=== PATIENT | female | born 1960 | race Caucasian/White ===

== ENCOUNTER 2018-03-11 12:05 | Observation (INO) | payer OTHER ==
--- OUTSIDE RECORDS SUMMARY | 2018-03-11 12:07 | XMS REPORT | Clinical Summary ---
:1960 Author Organization [facility] Address [address] [place] [id number] Care Team Providers Name Role Phone Jenna Bai MD Primary Care Provider Allergies Active Allergy Reactions Severity Noted Date Comments Cyclobenzaprine 04/14/2016 Acts crazy with all relaxers. No Known Drug Allergies 09/21/2015 Current Medications Prescription Sig. Disp. Refills Start Date End Date Status traZODone Take 2 tablets 180 tablet 3 09/26/2016 Active (DESYREL) 150 MG (300 mg total) tabletIndications: by mouth Primary insomnia nightly. PROAIR HFA 90 05/08/2017 Active mcg/actuation inhaler DULoxetine TAKE ONE 180 capsule 3 10/22/2017 Active (CYMBALTA) 60 MG CAPSULE BY capsuleIndications MOUTH TWICE A : Fibromyalgia DAY DULoxetine Take 1 capsule 180 capsule 3 09/26/2016 Discontinued (CYMBALTA) 60 MG (60 mg total) 8 capsuleIndications by mouth 2 : Fibromyalgia (two) times a day. oseltamivir Take 1 capsule 10 capsule 0 05/11/2017 (TAMIFLU) 75 MG (75 mg total) 7 capsuleIndications by mouth 2 : Exposure to the (two) times a flu day for 5 days. benzonatate Take 1 capsule 50 capsule 1 05/11/2017 (TESSALON) 200 MG (200 mg total) 8 capsuleIndications by mouth 3 : Bronchitis (three) times a day as needed for cough for up to 30 days. codeine-guaifenesi Take 10 mL by 236 mL 0 05/11/2017 n (GUAIFENESIN AC) mouth 3 7 10-100 mg/5 mL (three) times liquidIndications: a day as Bronchitis needed for cough for up to 10 days. amoxicillin-pot Take 1 tablet 20 tablet 0 05/11/2017 clavulanate by mouth 2 7 (AUGMENTIN) (two) times a 875-125 mg per day for 10 tabletIndications: days. Bronchitis levoFLOXacin Take 1 tablet 10 tablet 0 05/11/2017 (LEVAQUIN) 500 MG (500 mg total) 7 tabletIndications: by mouth daily Bronchitis for 10 days. If not improved by Monday. Active Problems Problem Noted Date Gastroesophageal reflux disease with esophagitis 05/26/2016 Elevated blood pressure (not hypertension) 12/04/2015 Panic 09/21/2015 Perimenopausal disorder 09/21/2015 Primary fibromyalgia syndrome 09/21/2015 Panic attack Fibromyalgia Heart palpitations Encounters Date Type Specialty Care Team Description 10/22/2017 Refill Internal Medicine Jenna Bai Fibromyalgia MD Cristian 05/11/2017 Office Visit Internal Medicine Jenna Bai Cough (Primary Dx); MD Cristian Acute nasopharyngitis; Bronchitis; Exposure to the flu after 03/10/2017 Immunizations Name Dates Previously Given Next Due Influenza, Unspecified 04/05/2015 Tdap 03/05/2015 Zoster 04/14/2016 Family History Medical History Relation Name Comments Alzheimer's disease Father Alzheimer's disease Maternal Aunt Alzheimer's disease Maternal Grandmother Heart disease Maternal Grandmother Arthritis Mother Depression Mother Alzheimer's disease Paternal Aunt Alzheimer's disease Paternal Grandfather Alzheimer's disease Paternal Uncle Relation Name Status Comments Father Maternal Aunt Maternal Grandmother Mother Paternal Aunt Paternal Grandfather Paternal Uncle Social History Tobacco Use Types Packs/Day Years Used Date Never Smoker Tobacco Cessation: Counseling Given: No Alcohol Use Drinks/Week oz/Week Comments Yes Sex Assigned at Date Recorded Not on file Last Filed Vital Signs Vital Sign Reading Time Taken Blood Pressure 129/85 05/11/2017 12:30 PM [employer]IEF MECH[employer]ICAL OFFICER Pulse 95 05/11/2017 12:30 PM [employer]IEF MECH[employer] OFFICER Temperature 36.8 C (98.3 F) 05/11/2017 12:30 PM CHIEF MECH[employer]ICAL OFFICER Respiratory Rate 20 05/11/2017 12:30 PM CHIEF MECH[employer]ICAL OFFICER Oxygen Saturation 98% 05/11/2017 12:30 PM CHIEF MECH[employer]ICAL OFFICER Inhaled Oxygen Concentration - - Weight 117 kg (257 lb 9.6 oz) 05/11/2017 12:30 PM CHIEF MECH[employer]ICAL OFFICER Height - - Body Mass Index 38.04 05/11/2017 12:30 PM [employer]IEF MECH[employer]ICAL OFFICER Plan of Treatment Health Maintenance Due Date Last Done Comments CERVICAL CANCER SCREENING 1981 BREAST CANCER SCREENING 2010 COLON CANCER SCREENING 2010 SHINGRIX VACCINE (#1) 2010 INFLUENZA VACCINE 01/03/2018 04/05/2015 Procedures Procedure Name Priority Date/Time Associated Diagnosis Comments POCT INFLUENZA A/B Routine 05/11/2017 12:43 PM Cough Results for this [employer]IEF MECH[employer]ICAL OFFICER Acute procedure are in nasopharyngitis the results Exposure to the flu section. after 03/10/2017 Results POC Influenza A/B (05/11/2017 12:43 PM) Rapid Influenza A Ag - Rapid Influenza B Ag - Specimen Body fluid after 03/10/2017 Insurance Payer Benefit Plan / Group Subscriber ID Type Phone Address [facility] OPEN ACCESS/NETWORK xxxxxxxxxxx O [phone] [id number]
--- NOTE | 2018-03-11 12:57 | RAD REPORT ---
EXAM DESCRIPTION: RAD - Chest Single View - 03/11/2018 12:43 pm CLINICAL HISTORY: CHEST PAIN Chest pain. COMPARISON: CHEST SINGLE VIEW dated 05/08/2011 FINDINGS: Portable technique limits examination quality. The lungs are grossly clear. The heart is normal in size. No displaced fractures. IMPRESSION: No acute intrathoracic process suspected.
[2018-03-11 13:04] LABS: Absolute Monocytes 0.5 K/uL (0.1-1.3); Absolute Neutrophil 3.7 K/uL (1.8-8.0); Basophils % 1.2 % (0-1.3); Eosinophils % 1.7 % (0-4.4); Hematocrit 40.6 % (36.0-45.0); Lymphocytes % 60.4 % (15.3-44.8); MCH 32.5 pg (27.0-35.0); MCV 94.8 fL (80-100); MPV 7.7 fL (7.6-11.3); Monocytes % 4.5 % (3.3-12.3); RBC Red Blood Cell Count 4.28 M/uL (3.86-4.86)
[2018-03-11 13:20] LABS: ALT/SGPT 28 U/L (12-78); AST/SGOT 19 U/L (15-37); Albumin 3.4 g/dL (3.4-5.0); Alkaline Phosphatase 77 U/L (45-117); BUN Blood Urea Nitrogen 13 mg/dL (7-18); Bicarbonate 28 mmol/L (21-32); Bilirubin Direct < 0.1 mg/dL (0-0.2); Bilirubin Total 0.3 mg/dL (0.2-1.0); Glucose Level 107 mg/dL (74-106); Magnesium 2.3 mg/dL (1.8-2.4); NT PRO-BNP 6 pg/mL (<125); Potassium 3.7 mmol/L (3.5-5.1); Protein, Total 7.3 g/dL (6.4-8.2); Sodium Level 142 mmol/L (136-145); Troponin (Emerg Dept Use Only) < 0.02 ng/mL (0.0-0.045)
[2018-03-11 13:55] LABS: Protime INR 1.02
--- NOTE | 2018-03-11 14:15 | EDPHYS ---
Physician Documentation [facility] Name: Mandie Bobby Age: 57 yrs Sex: Female : 1960 Arrival Date: 03/11/2018 Time: 12:06 Bed 5 Private MD: ED Physician Santos Rogers HPI: 03/11 13:25 This 57 yrs old Female presents to ER via Ambulatory with complaints of Chest pm1 Tightness. 13:25 The patient or guardian reports chest pain that is located primarily in the mid-sternal pm1 area. Onset: 2 day(s) ago. Associated signs and symptoms: Pertinent positives: cough, Pertinent negatives: abdominal pain, dizziness, headache, nausea, shortness of breath, vomiting. The chest pain is described as a heaviness, sharp. Duration: The patient or guardian reports multiple episodes, that have now resolved. Modifying factors: The symptoms are alleviated by rest, the symptoms are aggravated by emotionally stressful situations, exertion, palpation of area. Severity of pain: in the emergency department the pain has improved. The patient has not experienced similar symptoms in the past. The patient has not recently seen a physician. Historical: - Allergies: 12:10 No Known Allergies; la1 - PMHx: 12:10 Depression; Fibromyalgia; la1 - Immunization history:: Adult Immunizations up to date. - Social history:: Smoking status: Patient/guardian denies using tobacco. - Ebola Screening: : No symptoms or risks identified at this time. ROS: 13:25 Constitutional: Negative for fever, chills, and weight loss, Eyes: Negative for injury, pm1 pain, redness, and discharge, ENT: Negative for injury, pain, and discharge, Neck: Negative for injury, pain, and swelling. 13:25 Respiratory: Negative for shortness of breath, cough, wheezing, and pleuritic chest pain, Abdomen/GI: Negative for abdominal pain, nausea, vomiting, diarrhea, and constipation, Back: Negative for injury and pain, : Negative for injury, bleeding, discharge, and swelling, MS/Extremity: Negative for injury and deformity, Skin: Negative for injury, rash, and discoloration. 13:25 Neuro: Negative for headache, weakness, numbness, tingling, and seizure. 13:25 Cardiovascular: Positive for chest pain, Negative for edema, orthopnea, palpitations. 13:25 Neuro: Exam: 13:25 Constitutional: This is a well developed, well nourished patient who is awake, alert, pm1 and in no acute distress. Head/Face: Normocephalic, atraumatic. Eyes: Pupils equal round and reactive to light, extra-ocular motions intact. Lids and lashes normal. Conjunctiva and sclera are non-icteric and not injected. Cornea within normal limits. Periorbital areas with no swelling, redness, or edema. ENT: Nares patent. No nasal discharge, no septal abnormalities noted. Tympanic membranes are normal and external auditory canals are clear. Oropharynx with no redness, swelling, or masses, exudates, or evidence of obstruction, uvula midline. Mucous membranes moist. Neck: Trachea midline, no thyromegaly or masses palpated, and no cervical lymphadenopathy. Supple, full range of motion without nuchal rigidity, or vertebral point tenderness. No Meningismus. 13:25 Cardiovascular: Regular rate and rhythm with a normal S1 and S2. No gallops, murmurs, or rubs. Normal PMI, no JVD. No pulse deficits. Respiratory: Lungs have equal breath sounds bilaterally, clear to auscultation and percussion. No rales, rhonchi or wheezes noted. No increased work of breathing, no retractions or nasal flaring. Abdomen/GI: Soft, non-tender, with normal bowel sounds. No distension or tympany. No guarding or rebound. No evidence of tenderness throughout. Back: No spinal tenderness. No costovertebral tenderness. Full range of motion. Skin: Warm, dry with normal turgor. Normal color with no rashes, no lesions, and no evidence of cellulitis. MS/ Extremity: Pulses equal, no cyanosis. Neurovascular intact. Full, normal range of motion. 13:25 Chest/axilla: Inspection: normal, Palpation: crepitus, is not appreciated, tenderness, of the mid-sternal area, that totally reproduces the patient's complaints. 13:25 Neuro: Orientation: is normal, Motor: is normal, moves all fours, Sensation: is normal, no obvious gross deficits, Gait: is steady, at a normal pace, without difficulty. Vital Signs: 12:10 BP 130 / 91; Pulse 93; Resp 18; Temp 97.4; Pulse Ox 98% on R/A; Weight 113.4 kg; Height la1 5 ft. 9 in. (175.26 cm); 12:30 BP 117 / 85; Pulse 94 MON; Resp 20; Pulse Ox 97% on R/A; sv 13:19 BP 122 / 79; Pulse 84; Resp 15; Pulse Ox 97% on R/A; sv 14:25 BP 138 / 81; Pulse 82; Resp 21; Pulse Ox 97% on R/A; sv 12:10 Body Mass Index 36.92 (113.40 kg, 175.26 cm) la1 12:30 Sinus Rhythm sv MDM: 12:18 Patient medically screened. pm1 13:31 Data reviewed: vital signs. pm1 13:54 Counseling: I had a detailed discussion with the patient and/or guardian regarding: the pm1 historical points, exam findings, and any diagnostic results supporting the discharge/admit diagnosis, lab results, radiology results, the need for further work-up and treatment in the hospital. 14:29 The patient was given aspirin in the Emergency Department. pm1 14:29 Physician consultation: Edgar Henson DO was contacted at 14:25, regarding admission, pm1 patient's condition, and will see patient in the emergency department to see patient at 14:25. 03/11 12:21 Order name: Basic Metabolic Panel; Complete Time: 13:35 pm1 03/11 12:21 Order name: CBC with Diff; Complete Time: 13:35 pm1 03/11 12:21 Order name: LFT's; Complete Time: 13:35 pm1 03/11 12:21 Order name: Magnesium; Complete Time: 13:35 pm1 03/11 12:21 Order name: NT PRO-BNP; Complete Time: 13:35 pm1 03/11 12:21 Order name: PT-INR; Complete Time: 14:13 pm1 03/11 12:21 Order name: Troponin (emerg Dept Use Only); Complete Time: 13:35 pm1 03/11 12:21 Order name: XRAY Chest (1 view); Complete Time: 13:05 pm1 03/11 12:21 Order name: EKG; Complete Time: 12:22 pm1 03/11 12:21 Order name: Cardiac monitoring; Complete Time: 12:30 pm1 03/11 12:21 Order name: EKG - Nurse/Tech; Complete Time: 12:30 pm1 03/11 12:21 Order name: IV Saline Lock; Complete Time: 12:30 pm1 03/11 14:41 Order name: Diet Heart Healthy; Complete Time: 14:41 sv 03/11 12:21 Order name: Labs collected and sent; Complete Time: 12:30 pm1 03/11 12:21 Order name: O2 Per Protocol; Complete Time: 12:30 pm1 03/11 12:21 Order name: O2 Sat Monitoring; Complete Time: 12:30 pm1 03/11 12:44 Order name: Labs - recollect needed; Complete Time: 13:09 eb Administered Medications: 14:24 Drug: Aspirin 325 mg Route: PO; sv 15:00 Follow up: Response: No adverse reaction sv Disposition: 18:39 Co-signature as Attending Physician, Santos Rogers MD Available for consultation at [facility] all times. . Disposition: 03/11/18 14:14 Hospitalization ordered by Edgar Henson for Observation. Preliminary diagnosis is Chest pain, unspecified. - Bed requested for Telemetry/MedSurg (observation). - Status is Observation. hb - Condition is Stable. - Problem is new. - Symptoms have improved. UTI on Admission? No Signatures: Dispatcher [employer] EDAlyssa Roberts RN ROBYN Soto Davey RN RN la1 Barron Posada, MELLY INDUSTRIAL TECHNOLOGY TEACHER pm1 Flori Mccormack, ROBYN RN Santos Rogers MD MD ps1 Natalie Pabon Corrections: (The following items were deleted from the chart) 14:02 13:25 Modifying factors: the symptoms are aggravated by emotionally stressful pm1 situations, palpation of area, pm1 14:20 14:14 Hospitalization Ordered by Sander Quezada MD for Observation. Preliminary pm1 diagnosis is Chest pain, unspecified. Bed requested for Telemetry/MedSurg (observation). Status is Observation. Condition is Stable. Problem is new. Symptoms have improved. UTI on Admission? No. pm1 15:09 14:20 03/11/2018 14:14 Hospitalization Ordered by Edgar Henson DO for Observation. eb Preliminary diagnosis is Chest pain, unspecified. Bed requested for Telemetry/MedSurg (observation). Status is Observation. Condition is Stable. Problem is new. Symptoms have improved. UTI on Admission? No. pm1 15:55 15:09 03/11/2018 14:14 Hospitalization Ordered by Edgar Henson DO for Observation. hb Preliminary diagnosis is Chest pain, unspecified. Bed requested for Telemetry/MedSurg (observation). Status is Observation. Condition is Stable. Problem is new. Symptoms have improved. UTI on Admission? No. eb
--- NOTE | 2018-03-11 14:15 | ER ---
Nurse's Notes [facility] Name: Mandie Bobby Age: 57 yrs Sex: Female : 1960 Arrival Date: 03/11/2018 Time: 12:06 Bed 5 Private MD: Diagnosis: Chest pain, unspecified Presentation: 03/11 12:09 Presenting complaint: Patient states: Heavy sensation in my chest for the last 3 days la1 that sometimes moves to my left arm. Transition of care: patient was not received from another setting of care. Onset of symptoms was March 11, 2018. Risk Assessment: Do you want to hurt yourself or someone else? Patient reports no desire to harm self or others. Initial Sepsis Screen: Does the patient meet any 2 criteria? No. Patient's initial sepsis screen is negative. Does the patient have a suspected source of infection? No. Patient's initial sepsis screen is negative. Care prior to arrival: None. 12:09 Method Of Arrival: Ambulatory la1 12:09 Acuity: EFREN 3 la1 Historical: - Allergies: 12:10 No Known Allergies; la1 - PMHx: 12:10 Depression; Fibromyalgia; la1 - Immunization history:: Adult Immunizations up to date. - Social history:: Smoking status: Patient/guardian denies using tobacco. - Ebola Screening: : No symptoms or risks identified at this time. Screenin:20 Abuse screen: Denies threats or abuse. Denies injuries from another. Nutritional sv screening: No deficits noted. Tuberculosis screening: No symptoms or risk factors identified. Fall Risk None identified. Assessment: 12:10 General: Appears in no apparent distress. comfortable, well developed, Behavior is sv calm, cooperative, appropriate for age. Pain: Complains of pain in mid-sternal area Pain radiates to left arm Quality of pain is described as heavy, pressure, Pain began 2-3 days ago. Is intermittent, Alleviated by nothing. Neuro: Level of Consciousness is awake, alert, obeys commands, Oriented to person, place, time, situation, Moves all extremities. Full function Gait is steady, Speech is normal. Cardiovascular: Patient's skin is warm and dry. Rhythm is sinus rhythm. Respiratory: Respiratory effort is even, unlabored, Respiratory pattern is regular, symmetrical. GI: No signs and/or symptoms were reported involving the gastrointestinal system. : No signs and/or symptoms were reported regarding the genitourinary system. EENT: No signs and/or symptoms were reported regarding the EENT system. Derm: Skin is normal. Musculoskeletal: No signs and/or symptoms reported regarding the musculoskeletal system. 14:15 Reassessment: Patient appears in no apparent distress at this time. No changes from sv previously documented assessment. Patient and/or family updated on plan of care and expected duration. Pain level reassessed. Patient is alert, oriented x 3, equal unlabored respirations, skin warm/dry/pink. 14:24 Reassessment: Dr Henson at the bedside. sv 15:30 Reassessment: Patient appears in no apparent distress at this time. No changes from sv previously documented assessment. Patient and/or family updated on plan of care and expected duration. Pain level reassessed. Patient is alert, oriented x 3, equal unlabored respirations, skin warm/dry/pink. Vital Signs: 12:10 BP 130 / 91; Pulse 93; Resp 18; Temp 97.4; Pulse Ox 98% on R/A; Weight 113.4 kg; Height la1 5 ft. 9 in. (175.26 cm); 12:30 BP 117 / 85; Pulse 94 MON; Resp 20; Pulse Ox 97% on R/A; sv 13:19 BP 122 / 79; Pulse 84; Resp 15; Pulse Ox 97% on R/A; sv 14:25 BP 138 / 81; Pulse 82; Resp 21; Pulse Ox 97% on R/A; sv 12:10 Body Mass Index 36.92 (113.40 kg, 175.26 cm) la1 12:30 Sinus Rhythm sv ED Course: 12:06 Patient arrived in ED. as 12:10 Triage completed. la1 12:10 Arm band placed on left wrist. la1 12:14 Barron Posada NP is PHCP. pm1 12:14 Santos Rogers MD is Attending Physician. pm1 12:18 EKG done, by ED staff, reviewed by Barron Posada NP. sv 12:20 Patient has correct armband on for positive identification. Placed in gown. Bed in low sv position. Call light in reach. Adult w/ patient. electronic device monitor on. Pulse ox on. NIBP on. Door closed. Head of bed elevated. 12:20 Initial lab(s) drawn, by wy, sent to lab. Inserted saline lock: 20 gauge in right sv antecubital area, using aseptic technique. Blood collected. Flushed right antecubital with 5 ml normal saline. 12:29 Alyssa Zepeda RN is Primary Nurse. sv 12:31 Nurse Practitioner and/or Physician Paste Mixer to see patient. sv 12:40 X-ray completed. Portable x-ray completed in exam room. Patient tolerated procedure tm4 well. 12:40 XRAY Chest (1 view) In Process Unspecified. EDMS 13:00 Lab(s) recollected, by ED staff, sent to lab. sv 13:13 Awaiting lab results. sv 14:14 Sander Quezada MD is Hospitalizing Provider. pm1 14:20 Edgar Henson DO is Hospitalizing Provider. pm1 15:46 No provider procedures requiring assistance completed. Patient admitted, IV remains in hb place. Patient maintains SpO2 saturation greater than 95% on room air. Administered Medications: 14:24 Drug: Aspirin 325 mg Route: PO; sv 15:00 Follow up: Response: No adverse reaction sv Outcome: 14:14 Decision to Hospitalize by Provider. pm1 15:46 Admitted to Tele accompanied by tech, family with patient, via wheelchair, room 425, hb with chart. 15:46 Condition: stable 15:46 Instructed on the need for admit, Demonstrated understanding of instructions. 15:55 Patient left the ED. hb Signatures: Dispatcher [employer] [facility] Alyssa Zepeda RN RN ÁngelAmanda tm4 Shilpa Saleem Lee, RN RN la1 Barron Posada NP CABINETMAKER APPRENTICE pm1 Flori Mccormack RN RN hb Corrections: (The following items were deleted from the chart) 13:21 13:09 General: Appears in no apparent distress. comfortable, well developed, Behavior sv is calm, cooperative, appropriate for age, sv 13:21 13:09 Pain: Complains of pain in mid-sternal area Pain radiates to left arm Quality of sv pain is described as heavy, pressure, Pain began 2-3 days ago. Is intermittent, Alleviated by nothing. sv 13:21 13:09 Neuro: Level of Consciousness is awake, alert, obeys commands, Oriented to sv person, place, time, situation, Moves all extremities. Full function Gait is steady, Speech is normal, sv :: Cardiovascular: Patient's skin is warm and dry. Rhythm is sinus rhythm sv sv :: Respiratory: Respiratory effort is even, unlabored, Respiratory pattern is sv regular, symmetrical, sv :: Derm: Skin is normal, sv sv :: Musculoskeletal: No signs and/or symptoms reported regarding the musculoskeletal sv system. sv :: GI: No signs and/or symptoms were reported involving the gastrointestinal system. sv sv :: : No signs and/or symptoms were reported regarding the genitourinary system. sv sv :: EENT: No signs and/or symptoms were reported regarding the EENT system. sv sv
[2018-03-11] MEDS ORDERED: ASPIRIN EC 325 MG TABLET PO ONE (14:29)
[2018-03-11] MEDS ORDERED: TRAZODONE 150 MG TAB PO PRN (14:49)
[2018-03-11] MEDS ORDERED: HYDRALAZINE HCL 20 MG/ML VIAL IV PRN (14:49)
[2018-03-11] MEDS ORDERED: ONDANSETRON 4 MG/2 ML VIAL IV PRN (14:49)
[2018-03-11] MEDS ORDERED: ALPRAZOLAM 0.25 MG TABLET PO PRN (14:49)
[2018-03-11] MEDS ORDERED: TRAMADOL HCL 50 MG TAB PO PRN (14:49)
[2018-03-11] MEDS ORDERED: ACETAMINOPHEN 500 MG TAB PO PRN (14:49)
--- NOTE | 2018-03-11 15:11 | P.HP ---
Certification for Inpatient Patient admitted to: Observation With expected LOS: <2 Midnights Patient will require the following post-hospital care: None Practitioner: I am a practitioner with admitting privileges, knowledge of patient current condition, hospital course, and medical plan of care. Services: Services provided to patient in accordance with Admission requirements found in Title 42 Section 412.3 of the Code of Federal Regulations Patient History Date of Service: 03/11/18 Primary Care Provider: Dr. Cardona([facility]) Reason for admission: Chest pain History of Present Illness: 57-year-old female present emergency room with chest pain. Chest pain has been present over the last several days. Chest pain is mainly to the substernal region. It radiates to the left side. She reports on Monday she had left arm pain. Pain is associated with some heartburn, shortness of breath. No nausea or vomiting or diaphoresis noted. No palpitations noted. She came to the ER for further evaluation. In the ER she was evaluated. Blood pressure stable. Initial cardiac enzymes unremarkable. EKG shows no significant ST changes. The patient was admitted for observation. When I saw the patient ER, she appeared comfortable. Patient reports no significant history of hypertension, diabetes. She last saw Cardiology about 8- 10 years ago. At that time she had a heart catheterization which was unremarkable. She has been under a great deal of stress. Her daughter has mental illness and the daughter has been in and out of hospitals. Her daughter got out-of-the hospital this past week. The patient also takes care of her mother who lives with her. Allergies acetaminophen [From NyQuil] Allergy (Intermediate, Verified 06/20/12 08:13) Hives dextromethorphan HBr [From NyQuil] Allergy (Intermediate, Verified 06/20/12 08: 13) Hives doxylamine [From NyQuil] Allergy (Intermediate, Verified 06/20/12 08:13) Hives pseudoephedrine HCl [From NyQuil] Allergy (Intermediate, Verified 06/20/12 08:13 ) Hives No Known All Allergy (Uncoded 11/29/16 02:41) Unknown Home medications list reviewed: Yes - Past Medical/Surgical History Diabetic: No -: Fibromyalgia -: Obesity -: C-sections x3 -: Heart catheterization unremarkable 8 years ago Psychosocial/ Personal History: The patient is of 38 years. She has 3 children. She does not work. - Family History Mother -: Heart disease - Social History Smoking Status: Never smoker Alcohol use: Yes CD- Drugs: No Caffeine use: Yes Place of Residence: Home Review of Systems General: Unremarkable Eyes: Unremarkable ENT: Unremarkable Respiratory: Shortness of Breath, As per HPI Cardiovascular: Chest Pain, As per HPI Gastrointestinal: Unremarkable Genitourinary: Unremarkable Musculoskeletal: Unremarkable Integumentary: Unremarkable Neurological: Unremarkable Lymphatics: Unremarkable Physical Examination - Physical Exam General: Alert, In no apparent distress, Oriented x3, Cooperative HEENT: Atraumatic, Normocephalic, PERRLA, Mucous membr. moist/pink Neck: Supple, No Thyromegaly Respiratory: Clear to auscultation bilaterally, Normal air movement Cardiovascular: Normal pulses, Regular rate/rhythm Gastrointestinal: Normal bowel sounds, Soft and benign, Non-distended, No tenderness, No masses, No rebound, No guarding Musculoskeletal: No erythema, No tenderness, No warmth Integumentary: No tenderness/swelling, No erythema, No warmth, No cyanosis Neurological: Normal speech, Normal strength at 5/5 x4 extr, Normal tone, Normal affect - Studies Laboratory Data (last 24 hrs) 03/11/18 12:54: PT 12.0, INR 1.02 03/11/18 12:54: WBC 11.6 H, Hgb 13.9, Hct 40.6, Plt Count 272 03/11/18 12:54: Sodium 142, Potassium 3.7, BUN 13, Creatinine 1.00, Glucose 107 H, Magnesium 2.3, Total Bilirubin 0.3, AST 19, ALT 28, Alkaline Phosphatase 77 Assessment and Plan - Plan Impression: Chest pain, atypical with prior heart catheterization 8 years ago unremarkable Fibromyalgia Increased stress at home Obesity Plan: Chest pain, atypical with prior heart catheterization 8 years ago unremarkable Fibromyalgia Increased stress at home Obesity Patient will be admitted for observation. Will monitor on telemetry. Will continue with serial cardiac enzymes. Will start aspirin and Lipitor. Will provide DVT prophylaxis. Blood pressure stable. Will provide medication for blood pressure elevation. Will order echocardiogram to further evaluate. Cardiology consulted to further assess. Will keep the patient NPO as the patient may require cardiac evaluation. Will continue with her fibromyalgia medication including Cymbalta and trazodone. Will provide medication for anxiety. Will teach on lifestyle modification education. Will check tsh and fasting lipid count. Anticipate discharge in the next 24 hr. Discharge Plan: Home Plan to discharge in: 24 Hours - Advance Directives Does patient have a Living Will: No Does patient have a Durable POA for Healthcare: No - Code Status/Comfort Care Code Status Assessed: Yes (Patient full code.) Time Spent Managing Pts Care (In Minutes): 55
[2018-03-11] MEDS: ENOXAPARIN 40 MG/0.4 ML SQ SCH (16:34)
[2018-03-11] MEDS ORDERED: INFLUENZA VACCINE (for 3y+) 0.5 ML DOSE IMVAC ONE (17:00)
[2018-03-11 17:16] LABS: Thyroid Stimulating Hormone 0.83 uIU/mL (0.360-3.740)
[2018-03-11 18:03] VITALS: BMI 37.9
[2018-03-11] MEDS ORDERED: POTASSIUM CL SA 10 MEQ TAB PO ONE (20:00)
[2018-03-11] MEDS ORDERED: ATORVASTATIN 40 MG TAB PO SCH (21:00)
[2018-03-11 21:05] LABS: Urine Appearance CLEAR; Urine Bilirubin NEGATIVE (NEG); Urine Blood 1+ (NEG); Urine Color YELLOW; Urine Glucose NEGATIVE (NEG); Urine Protein NEGATIVE (NEG)
[2018-03-11] MEDS: DULOXETINE 30 MG CAP PO SCH (21:08)
[2018-03-11 21:10] LABS: Urine Microscopic Reflex ORDER UMIC
[2018-03-11 21:21] LABS: Urine RBC <5 /HPF (NONE SEEN)
[2018-03-11 21:22] LABS: Urine Bacteria >50 /HPF (<20); Urine Culture Reflex Order REFLEXED
[2018-03-11 23:53] LABS: CKMB Creatine Kinase MB 1.1 ng/mL (0.3-3.6); Creatine Phosphokinase 97 U/L (26-192); Troponin I < 0.02 ng/mL (0.0-0.045)
[2018-03-12 02:30] VITALS: O2SAT 94
[2018-03-12 06:18] LABS: Absolute Lymphocytes (CBC) 6.2 K/uL (0.7-4.9); Absolute Monocytes 0.6 K/uL (0.1-1.3); Absolute Neutrophil 3.5 K/uL (1.8-8.0); Basophils % 0.7 % (0-1.3); Eosinophils % 2.2 % (0-4.4); Lymphocytes % 58.6 % (15.3-44.8); MCV 95.2 fL (80-100); MPV 7.6 fL (7.6-11.3); Monocytes % 5.3 % (3.3-12.3); RBC Red Blood Cell Count 4.31 M/uL (3.86-4.86)
[2018-03-12 06:28] LABS: Magnesium 2.5 mg/dL (1.8-2.4); Potassium 4.2 mmol/L (3.5-5.1)
[2018-03-12 06:32] LABS: CKMB Creatine Kinase MB < 1.0 ng/mL (0.3-3.6); Creatine Phosphokinase 84 U/L (26-192); Troponin I < 0.02 ng/mL (0.0-0.045)
[2018-03-12] MEDS ORDERED: PANTOPRAZOLE 40MG TABLET PO SCH (07:30)
--- NOTE | 2018-03-12 07:30 | EKG ---
Test Date: 2018-03-11 Test Time: 12:18:55 Almond Blancher: SYDNEE MEASUREMENT RESULTS: Intervals: Rate: 90 AK: 180 QRSD: 102 QT: 372 QTc: 455 [place]: P: 50 AK: 180 QRS: -56 T: 32 INTERPRETIVE STATEMENTS: Normal sinus rhythm Left anterior fascicular block Cannot rule out Inferior infarct (masked by fascicular block?), age undetermined Abnormal ECG Compared to ECG 11/29/2016 00:41:47 Left anterior fascicular block now present Left-axis deviation no longer present Myocardial infarct finding still present Electronically Signed On 03-12-18 07:29:57 CDT by Rubio Ruiz
[2018-03-12 07:56] LABS: Urine White Blood Cell Casts OK
[2018-03-12 07:57] LABS: Blood Morphology Comment NOT SEEN (NOT SEEN); Platelet Estimate ADEQ
[2018-03-12] MEDS ORDERED: ASPIRIN EC 81 MG TAB PO SCH (09:00)
[2018-03-12] MEDS: ENOXAPARIN 40 MG/0.4 ML SQ SCH (09:57)
[2018-03-12] MEDS: DULOXETINE 30 MG CAP PO SCH (09:58)
--- NOTE | 2018-03-12 10:35 | P.DS ---
Admission Date: 03/11/18 Discharge Date: 03/12/18 Primary Care Provider: Dr. Cardona([facility]) Disposition: ROUTINE DISCHARGE Discharge Condition: GOOD Reason for Admission: Chest pain Consultations: Cardiology-Dr. Ruiz Procedures: Echocardiogram: Ejection fraction 68% LEFT VENTRICULAR WALL MOTION: NORMAL. DOPPLER/COLOR FLOW: NORMAL. COMMENTS: DILATED LEFT ATRIUM OTHERWISE NORMAL 2D ECHO WITH DOPPLER. Cardiac stress test: No stress-induced ischemia noted Medical problem list: Chest pain, atypical with prior heart catheterization 8 years ago unremarkable, resolved Fibromyalgia Increased stress at home Obesity Hyperlipidemia GERD Possible UTI Brief History of Present Illness: 57-year-old female present emergency room with chest pain. Chest pain has been present over the last several days. Chest pain is mainly to the substernal region. It radiates to the left side. She reports on Monday she had left arm pain. Pain is associated with some heartburn, shortness of breath. No nausea or vomiting or diaphoresis noted. No palpitations noted. She came to the ER for further evaluation. In the ER she was evaluated. Blood pressure stable. Initial cardiac enzymes unremarkable. EKG shows no significant ST changes. The patient was admitted for observation. When I saw the patient ER, she appeared comfortable. Patient reports no significant history of hypertension, diabetes. She last saw Cardiology about 8- 10 years ago. At that time she had a heart catheterization which was unremarkable. She has been under a great deal of stress. Her daughter has mental illness and the daughter has been in and out of hospitals. Her daughter got out-of-the hospital this past week. The patient also takes care of her mother who lives with her. Hospital Course: Patient presented with chest pain. Patient was admitted for observation. Cardiac enzymes unremarkable. Echocardiogram obtained. Patient seen by Cardiology. Echo shows ejection fraction 68%. Cardiology recommended stress test. No stress-induced ischemia noted. At discharge patient will continue with aspirin 81 mg daily. No further intervention was required. Patient has fibromyalgia. Patient will continue with her medications including Cymbalta 60 mg 1 pill twice daily and trazodone 150 mg at night. Patient has increased stress at home. Patient may require stress counseling at discharge. This can be further addressed by her PCP. Patient denied any dysuria. Patient may have underlying UTI her lab. UTI prevention will be enforced. PCP will need a follow up urine culture to determine if the patient requires medication. Lifestyle modification education addressed in detail. BMI 37. Patient may have underlying GERD. At discharge patient will continue with Protonix 40 mg 1 pill once daily. Patient may benefit with GI evaluation as an outpatient. Patient has hyperlipidemia. Total cholesterol 141, total triglycerides 263, LDL 158, HDL 77. Recommendation is to continue with lifestyle modification and [employer] diet. Recommendation to recheck fasting lipid panel in 4 weeks. If still elevated patient may require medication. This can be further addressed by her PCP. Vital Signs/Physical Exam: Temp Pulse Resp BP Pulse Ox 97.4 F 78 18 133/73 92 03/12/18 08:00 03/12/18 08:00 03/12/18 08:00 03/12/18 08:00 03/12/18 08:00 General: Alert, In no apparent distress, Oriented x3, Cooperative HEENT: Atraumatic, Mucous membr. moist/pink Neck: Supple, No Thyromegaly Respiratory: Clear to auscultation bilaterally, Normal air movement Cardiovascular: Normal pulses, Regular rate/rhythm Gastrointestinal: Normal bowel sounds, Soft and benign, Non-distended, No tenderness, No masses, No rebound, No guarding Musculoskeletal: No erythema, No tenderness, No warmth Integumentary: No tenderness/swelling, No erythema, No warmth, No cyanosis Neurological: Normal speech, Normal strength at 5/5 x4 extr, Normal tone, Normal affect Laboratory Data at Discharge: WBC 10.6 K/uL (4.3-10.9) 03/12/18 05:52 Hgb 14.2 g/dL (12.0-15.0) 03/12/18 05:52 Hct 41.0 % (36.0-45.0) 03/12/18 05:52 Plt Count 262 K/uL (152-406) 03/12/18 05:52 PT 12.0 SECONDS (9.5-12.5) 03/11/18 12:54 INR 1.02 03/11/18 12:54 Sodium 143 mmol/L (136-145) 03/12/18 05:52 Potassium 4.2 mmol/L (3.5-5.1) 03/12/18 05:52 BUN 12 mg/dL (7-18) 03/12/18 05:52 Creatinine 1.00 mg/dL (0.55-1.3) 03/12/18 05:52 Glucose 95 mg/dL (74-106) 03/12/18 05:52 Magnesium 2.5 mg/dL (1.8-2.4) H 03/12/18 05:52 Total Bilirubin 0.3 mg/dL (0.2-1.0) 03/11/18 12:54 AST 19 U/L (15-37) 03/11/18 12:54 ALT 28 U/L (12-78) 03/11/18 12:54 Alkaline Phosphatase 77 U/L (45-117) 03/11/18 12:54 Troponin I < 0.02 ng/mL (0.0-0.045) 03/12/18 05:52 Triglycerides 141 mg/dL (<150) 03/12/18 05:52 Cholesterol 263 mg/dL (<200) H 03/12/18 05:52 HDL Cholesterol 77 mg/dL (40-60) H 03/12/18 05:52 Cholesterol/HDL Ratio 3.42 03/12/18 05:52 Home Medications: Duloxetine HCl 1 tab PO BID 03/11/18 Trazodone [Desyrel*] 150 mg PO BEDTIME 03/11/18 Pantoprazole [Protonix Tab*] 40 mg PO ACB #30 tab 03/12/18 New Medications: Pantoprazole [Protonix Tab*] 40 mg PO ACB #30 tab Patient Discharge Instructions: 1. Patient will need to follow up with her PCP in 1 week to follow up this hospitalization. 2. Patient presented with chest pain. Patient was admitted for observation. Cardiac enzymes unremarkable. Echocardiogram obtained. Patient seen by Cardiology. Ejection fraction 68%. Cardiology recommended stress test. No stress-induced ischemia noted. At discharge patient will continue with aspirin 81 mg daily. No further intervention was required. 3. Patient has fibromyalgia. Patient will continue with her medications including Cymbalta 60 mg 1 pill twice daily and trazodone 150 mg at night. 4. Patient has increased stress at home. Patient may require stress counseling at discharge. This can be further addressed by her PCP. 5. Patient denied any dysuria. Patient may have underlying UTI her lab. UTI prevention will be enforced. PCP will need a follow up urine culture to determine if the patient requires medication. 6. Lifestyle modification education addressed in detail. BMI 37. 7. Patient may have underlying GERD. At discharge patient will continue with Protonix 40 mg 1 pill once daily. Patient may benefit with GI evaluation as an outpatient. 8. Patient has hyperlipidemia. Total cholesterol 141, total triglycerides 263, LDL 158, HDL 77. Recommendation is to continue with lifestyle modification and [employer] diet. Recommendation to recheck fasting lipid panel in 4 weeks. If still elevated patient may require medication. This can be further addressed by her PCP. Diet: AHA Activity: Ad maría Followup: Rubio Ruiz MD [ACTIVE - CAN ADMIT] - Time spent managing pt's care (in minutes): 55
--- NOTE | 2018-03-12 10:48 | ECHO ---
HEIGHT: 5 ft 9 in WEIGHT: 256 lb 11.2 oz DATE OF STUDY: 03/12/[address]: Edgar Henson DO 2-DIMENSIONAL: YES M.MODE: YES DOPPLER: YES COLOR FLOW: YES TDS: YES PORTABLE: NO DEFINITY: NO BUBBLE STUDY: NO DIAGNOSIS: CHEST PAIN CARDIAC HISTORY: CATHERIZATION: YES SURGERY: NO PROSTHETIC VALVE: NO PACEMAKER: NO MEASUREMENTS (cm) DIASTOLIC (NORMALS) SYSTOLIC (NORMALS) IVSd 1.1 (0.6-1.2) LA Diam 4.4 (1.9-4.0) LVEF 68% LVIDd 3.7 (3.5-5.7) LVIDs 2.3 (2.0-3.5) %FS 37% LVPWd 1.2 (0.6-1.2) Ao Diam 3.1 (2.0-3.7) 2 DIMENSIONAL ASSESSMENT: RIGHT ATRIUM: NORMAL LEFT ATRIUM: DILATED RIGHT VENTRICLE: NORMAL LEFT VENTRICLE: NORMAL TRICUSPID VALVE: NORMAL MITRAL VALVE: NORMAL PULMONIC VALVE: NORMAL AORTIC VALVE: NORMAL PERICARDIAL EFFUSION: NONE AORTIC ROOT: NORMAL LEFT VENTRICULAR WALL MOTION: NORMAL. DOPPLER/COLOR FLOW: NORMAL. COMMENTS: DILATED LEFT ATRIUM OTHERWISE NORMAL 2D ECHO WITH DOPPLER. TECHNOLOGIST: ANUSHA ARCINIEGA
--- NOTE | 2018-03-12 14:32 | CON ---
CARDIOLOGY CONSULT Chief Complaint: Chest pain. History Of Present Illness: Ms. Bobby has been having chest pain for about 4 days. Chest pain is kind of all over her body. She notes it may be present more when she is up and about working. It h as not happened all when she is totally at rest. It is a sharp sticking pain. She seems to indicate that it comes 3 or 4 times at once, each time lasting just a few seconds. She indicates right in th e middle of her chest. About 10 years ago, she had a cardiac catheterization that was normal. Since then, she has not had any followup with Cardiology Services. She has a history of anxiety and depre ssion. She takes trazodone and duloxetine. She reports drug intolerance to acetaminophen, dextromet horphan, doxylamine. She uses no tobacco, no alcohol, no illegal drugs since she has been in the [facility], and electrocardiogram shows rightward axis, questionable inferior MN, although a left anterior fascicular block looks just like an MN. So far, she has had an echocardiogram and her cardiac enzym es are all normal. We will do a routine stress test. If she does not have ischemia, she could be di scharged for outpatient followup. She has very elevated cholesterol and should really consider being on cholesterol-lowering medications. Her HDL is likewise high, but her LDL is 158, and she would re ally benefit from being on a statin drug. Thank you very much for your kind referral of Ms. Bobby. I will follow her with you. DORIS Voice ID: [id number] Report ID: [id number]
[2018-03-12 16:02] VITALS: BP 126/66; TEMP 97.5
--- NOTE | 2018-03-13 07:13 | TREADMILL ---
70% H.R.: 114 85% H.R.: 139 90% H.R.: 147 100% H.R.: 163 DX: ATYPICAL CHEST PAIN Date of Study: 03/12/2018 Ht: 5 9 Wt: 256 lb 11.2 oz Consulting Physician: ALBA MEDICATIONS: XANAX, ASPIRIN, LIPITOR, APRESOLINE, ZOFRAN, ULTRAM, DESYREL HISTORY: 57 YEAR OLD FEMALE WITH COMPLAINTS OF CHEST PAIN. HISTORY OF DEPRESSION AND FIBROMYALGIA. PHYSICIAL EXAMINATION: RESTING B.P.: 136/102 RESTING H.R.: 90 RESTING EKG: LEFT AXIS, POOR R WAVE PROGRESSION. PROTOCOL: MAURIZIO ROUTINE EXERCISE TIME: 5:00 MAXIMUM HEART RATE: 153 93 % OF PREDICTED B.P. AT PEAK STRESS: 156/94 H.R. AT 1 MINUTE POST EXERCISE: 142 IMPRESSION: STRESS TEST STOPPED DUE TO FATIGUE AND TARGET HEART RATE REACHED. NO SUPRAVENTRICULAR TACHYCARDIA. NO VENTRICULAR TACHYCARDIA. ONE PREMATURE VENTRICULAR COMPLEX PRIOR TO STRESS. TIGHTNESS 3/10 WHILE WALKING AND IN RECOVERY. NO ST CHANGES WITH STRESS.
== END 2018-03-12 18:00 | disposition home or self-care (01) ==
LOC: ER 12:05 → ERHOLD 14:24 → 4TH 15:46
PROVIDERS: ADMIT Family Medicine; ATTEND Family Medicine
DX: R07.89 Other chest pain (principal); M79.7 Fibromyalgia; Z63.8 Other specified problems related to primary support group; E66.9 Obesity, unspecified; Z68.37 Body mass index [BMI] 37.0-37.9, adult; E78.5 Hyperlipidemia, unspecified
CPT/HCPCS: 36415; 71045; 80048; 80061; 80076; 81003; 81015; 82550; 82553; 83735; 83880; 84439; 84443; 84484; 85025; 85610; 87077; 87086; 87088; 87186; 93005; 93017; 93306; 99285; G0008; G0378; J1650; Q2035

== ENCOUNTER 2018-11-07 09:34 | Emergency (ER) | payer OTHER ==
--- OUTSIDE RECORDS SUMMARY | 2018-11-07 09:37 | XMS REPORT | Clinical Summary ---
:1960 Author Organization [facility] Address [address] [place] [id number] Care Team Providers Name Role Phone Jenna Bai MD Primary Care Provider Allergies Active Allergy Reactions Severity Noted Date Comments Cyclobenzaprine 04/14/2016 Acts crazy with all relaxers. No Known Drug Allergies 09/21/2015 Medications Medication Sig Dispensed Refills Start Date End Date Status PROAIR HFA 90 Inhale 2 18 g 2 03/28/2018 Active mcg/actuation puffs every 4 inhaler (four) hours as needed (cough). DULoxetine Take 1 180 capsule 3 08/20/2018 Active (CYMBALTA) 60 MG capsule (60 capsuleIndications mg total) by : Fibromyalgia mouth 2 (two) times a day. traZODone Take 2 180 tablet 3 08/20/2018 Active (DESYREL) 150 MG tablets (300 tabletIndications: mg total) by Primary insomnia mouth nightly. traZODone Take 2 180 tablet 3 09/26/2016 03/28/2018 Discontinued (DESYREL) 150 MG tablets (300 tabletIndications: mg total) by Primary insomnia mouth nightly. PROAIR HFA 90 0 05/08/2017 03/28/2018 Discontinued mcg/actuation inhaler DULoxetine TAKE ONE 180 capsule 3 10/22/2017 03/28/2018 Discontinued (CYMBALTA) 60 MG CAPSULE BY capsuleIndications MOUTH TWICE A : Fibromyalgia DAY DULoxetine Take 1 180 capsule 3 03/28/2018 08/20/2018 Discontinued (CYMBALTA) 60 MG capsule (60 capsuleIndications mg total) by : Fibromyalgia mouth 2 (two) times a day. traZODone Take 2 180 tablet 3 03/28/2018 08/20/2018 Discontinued (DESYREL) 150 MG tablets (300 tabletIndications: mg total) by Primary insomnia mouth nightly. Active Problems Problem Noted Date Gastroesophageal reflux disease with esophagitis 05/26/2016 Elevated blood pressure (not hypertension) 12/04/2015 Panic 09/21/2015 Perimenopausal disorder 09/21/2015 Primary fibromyalgia syndrome 09/21/2015 Panic attack Fibromyalgia Heart palpitations Encounters Date Type Specialty Care Team Description 08/20/2018 Office Visit Internal Medicine Jenna Bai Acute epidemic vertigo (Primary Dx); MD Cristian Fibromyalgia; Primary insomnia; Mixed hyperlipidemia; Orthostasis 08/13/2018 Telephone Family Medicine Jenna Bai Weight loss ( Primary Dx); MD Cristian Dizziness 03/28/2018 Office Visit Internal Medicine Jenna Bai Chest wall pain (Primary Dx); MD Cristian Fibromyalgia; Primary insomnia after 11/06/2017 Immunizations Name Dates Previously Given Next Due Influenza, Unspecified 03/11/2018, 04/05/2015 Tdap 03/05/2015 Zoster 04/14/2016 Family History [...] Types Packs/Day Years Used Date Never Smoker Smokeless Tobacco: Never Used Tobacco Cessation: Counseling Given: No Alcohol Use Drinks/Week oz/Week Comments Yes Social Isolation Answer Date Recorded In a typical week, how many times do you talk on the phone Not asked with family, friends, or neighbors? How often do you get together with friends or relatives? Not asked How often do you attend anglican or islam services? Not asked Do you belong to any clubs or organizations such as anglican Not asked groups, unions, fraternal or athletic groups, or school groups? How often do you attend meetings of the clubs or Not asked organizations you belong to? Are you now , , , , never 08/20/2018 or living with a partner? Sex Assigned at Date Recorded Not on file Job Start Date Occupation Industry Not on file Not on file Not on file Travel History Travel Start Travel End No recent travel history available. Last Filed Vital Signs Vital Sign Reading Time Taken Blood Pressure 140/79 08/20/2018 2:10 PM CDT Pulse 90 08/20/2018 2:10 PM CDT Temperature 36.9 C (98.5 F) 08/20/2018 1:22 PM CDT Respiratory Rate 18 08/20/2018 1:22 PM CDT Oxygen Saturation 97% 08/20/2018 2:10 PM CDT Inhaled Oxygen Concentration - - Weight 108 kg (237 lb 3.2 oz) 08/20/2018 1:22 PM CDT Height 175.3 cm (5' 9") 08/20/2018 1:22 PM CDT Body Mass Index 35.03 08/20/2018 1:22 PM CDT Plan of Treatment Health Maintenance Due Date Last Done Comments BREAST CANCER SCREENING 2010 COLON CANCER SCREENING 2010 SHINGLES VACCINES (#1) 2010 INFLUENZA VACCINE 01/03/2019 03/11/2018, 04/05/2015 Procedures Procedure Name Priority Date/Time Associated Comments Diagnosis URINALYSIS, COMPLETE, Routine 08/14/2018 8:57 Weight loss Results for this WITH REFLEX TO CULTURE AM CDT Dizziness procedure are in the results section. T4, FREE Routine 08/14/2018 8:57 Weight loss Results for this AM CDT Dizziness procedure are in the results section. THYROID STIMULATING Routine 08/14/2018 8:57 Weight loss Results for this HORMONE AM CDT Dizziness procedure are in the results section. CBC WITH PLATELET AND Routine 08/14/2018 8:57 Weight loss Results for this DIFFERENTIAL AM CDT Dizziness procedure are in the results section. COMPREHENSIVE Routine 08/14/2018 8:57 Weight loss Results for this METABOLIC PANEL AM CDT Dizziness procedure are in the results section. HEMOGLOBIN A1C Routine 08/14/2018 8:57 Weight loss Results for this AM CDT Dizziness procedure are in the results section. after 11/06/2017 Results URINALYSIS, COMPLETE, WITH REFLEX TO CULTURE (08/14/2018 8:57 AM CDT) Color, UA DARK YELLOW YELLOW [facility] [place] Appearance CLEAR CLEAR [facility] [place] Specific gravity, 1.025 1.001 - 1.035 [facility] urine [place] pH, urine < OR=5.0 5.0 - 8.0 [facility] [place] Glucose, urine NEGATIVE NEGATIVE [facility] [place] Bilirubin, UA NEGATIVE NEGATIVE [facility] [place] Ketones, UA TRACE (A) NEGATIVE [facility] [place] Occult blood, 2+ (A) NEGATIVE [facility] urine [place] Protein, UA NEGATIVE NEGATIVE [facility] [place] Nitrite, UA NEGATIVE NEGATIVE [facility] [place] Leukocyte NEGATIVE NEGATIVE [facility] esterase, UA [place] WBC, UA 0-5 < OR=5 /HPF [facility] [place] RBC, UA 0-2 < OR=2 /HPF [facility] [place] Squamous 0-5 < OR=5 /HPF [facility] epithelial cells, [place] UA Bacteria, UA NONE SEEN NONE SEEN /HPF [facility] [place] Calcium oxalate FEW NONE OR FEW [facility] crystals, UA /HPF [place] Hyaline casts, UA NONE SEEN NONE SEEN /LPF [facility] [place] Comment FEW MUCOUS [facility] THREADS [place] Reflex NO CULTURE [facility] INDICATED [place] Specimen Narrative Performed At FASTING:YES [facility] FASTING: YES Resulting Agency Comment Performing Organization Information: Site ID: [id number] Name: [facility] Address: [address] [place] [id number] Director: Halina Patino Performing Organization Address City/State/Zipcode Phone Number [facility] [place] [address] [place], [place] [id number] CBC with platelet and differential (08/14/2018 8:57 AM CDT) WBC 10.4 3.8 - 10.8 [facility] Thousand/uL [place] RBC 4.81 3.80 - 5.10 [facility] Million/uL [place] HGB 15.0 11.7 - 15.5 [facility] g/dL [place] HCT 43.7 35.0 - 45.0 [facility] % [place] MCV 90.9 80.0 - 100.0 [facility] MCH 31.2 27.0 - 33.0 [facility] pg [place] MCHC 34.3 32.0 - 36.0 [facility] g/dL [place] RDW 13.1 11.0 - 15.0 [facility] % [place] Platelet count 277 140 - 400 [facility] Thousand/uL [place] MPV 9.7 7.5 - 12.5 [facility] Neutrophils, 3,058 1,500 - [facility] absolute 7,800 [place] cells/uL Lymphocytes, 6,531 (H) 850 - 3,900 [facility] absolute cells/uL [place] Monocytes, absolute 520 200 - 950 [facility] cells/uL [place] Eosinophils, 218 15 - 500 [facility] absolute cells/uL [place] Basophils, absolute 73 0 - 200 [facility] cells/uL [place] Neutrophils 29.4 % [facility] [place] Lymphocytes 62.8 % [facility] [place] Monocytes 5.0 % [facility] [place] Eosinophils 2.1 % [facility] [place] Basophils + RC 0.7 % [facility] [place] Nucleated RBC [facility] Comment: [place] Review of peripheral smear confirms automated results. Specimen Narrative Performed At FASTING:YES [facility] FASTING: YES Resulting Agency Comment Performing Organization Information: Site ID: [id number] Name: [facility] Address: [address] [place] [address] Director: Halina Patino Performing Organization Address [facility] Phone [place] [employer] [place] [address] Thyroid stimulating hormone (08/14/2018 8:57 AM CDT) Pathologist [facility] TSH 1.72 0.40 - 4.50 mIU/L [facility] [place] Specimen Narrative Performed At FASTING:YES [facility] FASTING: YES Resulting Agency Comment Performing Organization Information: Site ID: [id number] Name: [facility] Address: [address] [place] [phone] Director: Halina Patino Performing Organization Address [facility] Phone [place] [employer] [place] [address] T4, free (08/14/2018 8:57 AM CDT) Pathologist [facility] T4, free 1.0 0.8 - 1.8 ng/dL [facility] [place] Specimen Narrative Performed At FASTING:YES [facility] FASTING: YES Resulting Agency Comment Performing Organization Information: Site ID: [id number] Name: [facility] Address: [address] [place] [phone] Director: Halina Patino Performing Organization Address [facility] Phone [place] [employer] [place] [address] Hemoglobin A1c (08/14/2018 8:57 AM CDT) Hemoglobin A1C 5.2 <5.7 % of [facility] Comment: total Hgb SERRANO For the purpose of screening for the presence of diabetes: <5.7% Consistent with the absence of diabetes 5.7-6.4%Consistent with increased risk for diabetes (prediabetes) > or=6.5%Consistent with diabetes This assay result is consistent with a decreased risk of diabetes. Currently, no consensus exists regarding use of hemoglobin A1c for diagnosis of diabetes in children. According to [place] Diabetes Association (ADA) guidelines, hemoglobin A1c <7.0% represents optimal control in non- diabetic patients. Different metrics may apply to specific patient populations. Standards of Medical Care in Diabetes(ADA). Specimen Narrative Performed At FASTING:YES [facility] FASTING: YES Resulting Agency Comment Performing Organization Information: Site ID: [id number] Name: [facility] Address: [address] [place] [phone] Director: Halina Patino Performing Organization Address City/State/Zipcode Phone Number [employer] [address] [address] Comprehensive metabolic panel (08/14/2018 8:57 AM CDT) Glucose 101 (H) 65 - 99 [facility] Comment: mg/dL [place] Fasting reference interval For someone without known diabetes, a glucose value between 100 and 125 mg/dL is consistent with prediabetes and should be confirmed with a follow-up test. BUN, whole blood 18 7 - 25 mg/dL [facility] [place] Creatinine 1.00 0.50 - 1.05 [facility] Comment: mg/dL [place] For patients >49 years of age, the reference limit for Creatinine is approximately 13% higher for people identified as -[place]. EGFR Non-Afr. 62 > OR=60 [facility] [place] mL/min/1.73m [place] 2 EGFR 72 > OR=60 [facility] [place] mL/min/1.73m [place] 2 BUN/creatinine NOT APPLICABLE 6 - 22 [facility] ratio (calc) [place] Sodium 140 135 - 146 [facility] mmol/L [place] Potassium 4.1 3.5 - 5.3 [facility] mmol/L [place] Chloride 103 98 - 110 [facility] mmol/L [place] CO2 27 20 - 32 [facility] mmol/L [place] Calcium 9.4 8.6 - 10.4 [facility] mg/dL [place] Protein 7.0 6.1 - 8.1 [facility] g/dL [place] Albumin, S 4.2 3.6 - 5.1 [facility] g/dL [place] Globulin, total 2.8 1.9 - 3.7 [facility] g/dL (calc) [place] Albumin/globulin 1.5 1.0 - 2.5 [facility] ratio (calc) [place] Total bilirubin 0.6 0.2 - 1.2 [facility] mg/dL [place] Alkaline 64 33 - 130 U/L [facility] phosphatase [place] AST 16 10 - 35 U/L [facility] [place] ALT 18 6 - 29 U/L [facility] [place] Specimen Narrative Performed At FASTING:YES [facility] FASTING: YES Resulting Agency Comment Performing Organization Information: Site ID: [id number] Name: [facility] Address: [address] [place] [phone] Director: Halina Patino Performing Organization Address City/State/Zipcode Phone Number [employer] [facility] [place] [address] [place] [address] after 11/06/2017 Advance Directives Patient has advance care planning documents on file. For more information, please contact:Rafael Ordonez[address] [place] [address]
[2018-11-07] MEDS ORDERED: AMPICILLIN/SULBACT 1.5GM VIAL ONE (10:22)
[2018-11-07] MEDS ORDERED: NA CHLORIDE 0.9% 100 ML IV ONE (10:22)
[2018-11-07] MEDS ORDERED: TETANUS & DIPHTHERIA TOX,ADULT 0.5 ML VIAL ONE (10:22)
[2018-11-07] MEDS ORDERED: HYDROCODONE/APAP 5/325 MG TAB ONE (10:22)
--- NOTE | 2018-11-07 10:50 | ER ---
Nurse's Notes [facility] Name: Mandie Bobby Age: 58 yrs Sex: Female : 1960 Arrival Date: 11/07/2018 Time: 09:39 Bed 17 Private MD: out of town, doctor Diagnosis: Bitten by dog;Cellulitis of right finger Presentation: 11/07 09:45 Presenting complaint: Patient states: i gave my 3 month old lab a treat yesterday and hj my dog bit me on my R index finger, it has a cut on it, i applied Neosporin last night, its swollen and i couldn't bend my finger; denies fever;. Transition of care: patient was not received from another setting of care. Onset of symptoms was November 07, 2018. Risk Assessment: Do you want to hurt yourself or someone else? Patient reports no desire to harm self or others. Initial Sepsis Screen: Does the patient meet any 2 criteria? No. Patient's initial sepsis screen is negative. Does the patient have a suspected source of infection? No. Patient's initial sepsis screen is negative. Care prior to arrival: None. 09:45 Method Of Arrival: Ambulatory 09:45 Acuity: EFREN 4 hj Triage Assessment: 09:49 General: Appears in no apparent distress. uncomfortable, Behavior is calm, cooperative, hj appropriate for age. Pain: Complains of pain in palmar aspect of middle phalanx of right index finger. Historical: - Allergies: 09:48 No Known Allergies; hj - Home Meds: 09:48 Cymbalta 60 mg Oral cpDR 1 cap twice a day [Active]; trazodone 150 mg Oral tab 1 tab hj nightly [Active]; - PMHx: 09:48 Depression; Fibromyalgia; hj - PSHx: 09:48 ; hj - Immunization history:: Adult Immunizations up to date. - Social history:: Smoking status: Patient/guardian denies using tobacco, Patient uses alcohol. - Ebola Screening: : Patient negative for fever greater than or equal to 101.5 degrees Fahrenheit, and additional compatible Ebola Virus Disease symptoms Patient denies exposure to infectious person Patient denies travel to an Ebola-affected area in the 21 days before illness onset. Screenin:49 Abuse screen: Denies threats or abuse. Denies injuries from another. Nutritional hj screening: No deficits noted. Tuberculosis screening: No symptoms or risk factors identified. Fall Risk None identified. Assessment: 09:51 General: Appears in no apparent distress. uncomfortable, Behavior is calm, cooperative, hj appropriate for age. Pain: Complains of pain in palmar aspect of middle phalanx of right index finger. Neuro: Level of Consciousness is awake, alert, obeys commands, Oriented to person, place, time, situation, Appropriate for age. Cardiovascular: Capillary refill < 3 seconds Patient's skin is warm and dry. Respiratory: Airway is patent Respiratory effort is even, unlabored, Respiratory pattern is regular, symmetrical. GI: No signs and/or symptoms were reported involving the gastrointestinal system. : No signs and/or symptoms were reported regarding the genitourinary system. EENT: No signs and/or symptoms were reported regarding the EENT system. Derm: Abscess located on palmar aspect of middle phalanx of right index finger Reports pain. Musculoskeletal: No signs and/or symptoms reported regarding the musculoskeletal system. 10:11 Reassessment: reported the dog bite incident to [facility] ([phone]); will dispatch animal control staff to pt in ED; spoke with Christina;. 10:51 Reassessment: animal control to pt's room;. 10:57 Reassessment: Patient appears in no apparent distress at this time. No changes from aj previously documented assessment. Patient and/or family updated on plan of care and expected duration. Pain level reassessed. Patient is alert, oriented x 3, equal unlabored respirations, skin warm/dry/pink. Patient denies pain at this time. Patient states feeling better. Patient states symptoms have improved. Vital Signs: 09:48 BP 121 / 101; Pulse 88; Resp 18; Temp 98.8(O); Pulse Ox 96% on R/A; Weight 95.25 kg; hj Height 5 ft. 9 in. (175.26 cm); Pain 4/10; 10:57 BP 112 / 84; Pulse 79; Resp 18; Pulse Ox 99% on R/A; aj 09:48 Body Mass Index 31.01 (95.25 kg, 175.26 cm) ED Course: 09:39 Patient arrived in ED. mr 09:39 out of town, doctor is Private Physician. mr 09:40 Patience Song, [facility]ATA [facility] snw 09:40 Darrion Bangura MD is Attending Physician. snw 09:45 Luis Irizarry, ROBYN is Primary Nurse. hj 09:47 Triage completed. hj 09:49 Arm band placed on right wrist. hj 09:50 Patient has correct armband on for positive identification. Bed in low position. Call hj light in reach. Side rails up X 1. 09:50 Missed attempt(s): 20 gauge in right forearm. Bleeding controlled, band aid applied, dh3 catheter tip intact. 09:50 First set of blood cultures drawn by me. dh3 10:08 Inserted saline lock: 20 gauge in right antecubital area, using aseptic technique. dh3 Blood collected. 10:08 Second set of blood cultures drawn by va. dh3 10:23 Shavon Garcia, ROBYN is Primary Nurse. aj 10:37 Wound care: cleaned wound to right index finger with chlorhexidine and normal saline. 3 10:48 Ryan Catherine MD is Referral Physician. snw 10:57 No provider procedures requiring assistance completed. IV discontinued, intact, aj bleeding controlled, No redness/swelling at site. Pressure dressing applied. 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 Exp: aj 08/02/2020. Lot #: [id number]. } Route: IM; Site: right deltoid; 10:58 Follow up: Response: No adverse reaction aj 10:16 Not Given (Patient Refused): [place] 5 mg-325 mg 1 tabs PO once aj 10:17 Drug: Unasyn 1.5 grams Route: IVPB; Infused Over: 30 mins; Site: right antecubital; aj 10:58 Follow up: Response: No adverse reaction; IV Status: Completed infusion; IV Intake: aj 100ml 10:23 Drug: Hibiclens 4 % 1 application Route: Topical; Site: affected area; aj Intake: 10:58 IV: 100ml; Total: 100ml. aj Outcome: 10:50 Discharge ordered by . snw 10:57 Discharged to home ambulatory. aj 10:57 Condition: good 10:57 Discharge instructions given to patient, Instructed on discharge instructions, follow up and referral plans. medication usage, Demonstrated understanding of instructions, follow-up care, medications, Prescriptions given X 2. 10:59 Patient left the ED. david Signatures: Shavon Garcia, RN RN Patience Mario, BACK HANGER-C BACK HANGER-Csnw VieyraCara Juan CLuis smith RN Alexus Ferguson 3 Corrections: (The following items were deleted from the chart) 10:12 09:50 Missed attempt(s): 20 gauge in left forearm. Bleeding controlled, band aid dh3 applied, catheter tip intact. dh3
--- NOTE | 2018-11-07 10:50 | EDPHYS ---
Physician Documentation [facility] Name: Mandie Bobby Age: 58 yrs Sex: Female : 1960 Arrival Date: 11/07/2018 Time: 09:39 Bed 17 Private MD: out of town, doctor ED Physician Darrion Bangura HPI: 11/07 09:51 This 58 yrs old Female presents to ER via Ambulatory with complaints of snw Finger Infection. 09:51 The patient was bitten on the palmar aspect of middle phalanx of right index finger, by snw a dog, while playing, at home. Onset: The symptoms/episode began/occurred suddenly, yesterday. Animal information: The animal was reported to appear healthy. Animal's vaccinations are up to date. The animal is known and can be quarantined, Animal control has been notified. Secondary to the bite the patient reports erythema, pain, swelling. Severity of symptoms: At their worst the symptoms were moderate. The patient has not experienced similar symptoms in the past. The patient has not recently seen a physician. Historical: - Allergies: 09:48 No Known Allergies; hj - Home Meds: 09:48 Cymbalta 60 mg Oral cpDR 1 cap twice a day [Active]; trazodone 150 mg Oral tab 1 tab hj nightly [Active]; - PMHx: 09:48 Depression; Fibromyalgia; hj - PSHx: 09:48 ; hj - Immunization history:: Adult Immunizations up to date. - Social history:: Smoking status: Patient/guardian denies using tobacco, Patient uses alcohol. - Ebola Screening: : Patient negative for fever greater than or equal to 101.5 degrees Fahrenheit, and additional compatible Ebola Virus Disease symptoms Patient denies exposure to infectious person Patient denies travel to an Ebola-affected area in the 21 days before illness onset. ROS: 09:50 Constitutional: Negative for fever, chills, and weight loss, Eyes: Negative for injury, snw pain, redness, and discharge, ENT: Negative for injury, pain, and discharge, Neck: Negative for injury, pain, and swelling, Cardiovascular: Negative for chest pain, palpitations, and edema, Respiratory: Negative for shortness of breath, cough, wheezing, and pleuritic chest pain, Abdomen/GI: Negative for abdominal pain, nausea, vomiting, diarrhea, and constipation, Back: Negative for injury and pain, : Negative for injury, bleeding, discharge, and swelling, MS/Extremity: Negative for injury and deformity, Neuro: Negative for headache, weakness, numbness, tingling, and seizure, Psych: Negative for depression, anxiety, suicide ideation, homicidal ideation, and hallucinations. 09:50 Skin: Positive for cellulitis, erythema, swelling, of the palmar aspect of middle phalanx of right index finger. Exam: 09:49 Constitutional: This is a well developed, well nourished patient who is awake, alert, snw and in no acute distress. Head/Face: Normocephalic, atraumatic. Eyes: Pupils equal round and reactive to light, extra-ocular motions intact. Lids and lashes normal. Conjunctiva and sclera are non-icteric and not injected. Cornea within normal limits. Periorbital areas with no swelling, redness, or edema. ENT: Nares patent. No nasal discharge, no septal abnormalities noted. Tympanic membranes are normal and external auditory canals are clear. Oropharynx with no redness, swelling, or masses, exudates, or evidence of obstruction, uvula midline. Mucous membranes moist. Neck: Trachea midline, no thyromegaly or masses palpated, and no cervical lymphadenopathy. Supple, full range of motion without nuchal rigidity, or vertebral point tenderness. No Meningismus. Chest/axilla: Normal chest wall appearance and motion. Nontender with no deformity. No lesions are appreciated. Cardiovascular: Regular rate and rhythm with a normal S1 and S2. No gallops, murmurs, or rubs. Normal PMI, no JVD. No pulse deficits. Respiratory: Lungs have equal breath sounds bilaterally, clear to auscultation and percussion. No rales, rhonchi or wheezes noted. No increased work of breathing, no retractions or nasal flaring. Abdomen/GI: Soft, non-tender, with normal bowel sounds. No distension or tympany. No guarding or rebound. No evidence of tenderness throughout. Back: No spinal tenderness. No costovertebral tenderness. Full range of motion. MS/ Extremity: Pulses equal, no cyanosis. Neurovascular intact. Full, normal range of motion. Neuro: Awake and alert, GCS 15, oriented to person, place, time, and situation. Cranial nerves II-XII grossly intact. Motor strength 5/5 in all extremities. Sensory grossly intact. Cerebellar exam normal. Normal gait. Psych: Awake, alert, with orientation to person, place and time. Behavior, mood, and affect are within normal limits. 09:49 Skin: Appearance: normal except for affected area, cellulitis, that is moderate, well demarcated, on the palmar aspect of middle phalanx of right index finger, injury, bite(s), superficial, per her Lab puppy. Vital Signs: 09:48 BP 121 / 101; Pulse 88; Resp 18; Temp 98.8(O); Pulse Ox 96% on R/A; Weight 95.25 kg; hj Height 5 ft. 9 in. (175.26 cm); Pain 4/10; 10:57 BP 112 / 84; Pulse 79; Resp 18; Pulse Ox 99% on R/A; aj 09:48 Body Mass Index 31.01 (95.25 kg, 175.26 cm) hj MDM: 09:54 Patient medically screened. snw 10:52 Data reviewed: vital signs, nurses notes. Data interpreted: Pulse oximetry: on room air snw is 96 %. Interpretation: acceptable. Counseling: I had a detailed discussion with the patient and/or guardian regarding: the historical points, exam findings, and any diagnostic results supporting the discharge/admit diagnosis, the presence of at least one elevated blood pressure reading (>120/80) during this emergency department visit, the need for outpatient follow up, for definitive care. Special discussion: Based on the history and exam findings, there is no indication for further emergent testing or inpatient evaluation. I discussed with the patient/guardian the need to see the hand specialist for further evaluation of the symptoms. I discussed with the patient/guardian the need to see the primary care provider for further evaluation of the symptoms. 11/07 09:49 Order name: Blood Culture Adult (2) snw 11/07 09:53 Order name: Wound Care; Complete Time: 10:39 snw 11/07 09:53 Order name: consult Order-Animal control snw 11/07 09:53 Order name: Misc. Order: elevate right hand; Complete Time: 10:40 snw Administered Medications: 10:16 Drug: Tetanus-Diphtheria Toxoid Adult 0.5 ml {Director Outpatient Services: [employer]. Exp: aj 08/02/2020. Lot #: [id number]. } Route: IM; Site: right deltoid; 10:58 Follow up: Response: No adverse reaction aj 10:16 Not Given (Patient Refused): Oley 5 mg-325 mg 1 tabs PO once aj 10:17 Drug: Unasyn 1.5 grams Route: IVPB; Infused Over: 30 mins; Site: right antecubital; aj 10:58 Follow up: Response: No adverse reaction; IV Status: Completed infusion; IV Intake: aj 100ml 10:23 Drug: Hibiclens 4 % 1 application Route: Topical; Site: affected area; aj Disposition: 12:32 Co-signature as Attending Physician, Darrion Bangura MD. rn Disposition: 11/07/18 10:50 Discharged to Home. Impression: Bitten by dog, Cellulitis of right finger. - Condition is Stable. - Discharge Instructions: Cellulitis, Adult, Animal Bite. - Prescriptions for Augmentin 875- 125 mg Oral Tablet - take 1 tablet by ORAL route every 12 hours for 10 days; 20 tablet. Diclofenac Sodium 75 mg Oral Tablet Sustained Release - take 1 tablet by ORAL route 2 times per day; 30 tablet. - Medication Reconciliation Form, Thank You Letter, Antibiotic Education, Prescription Opioid Use form. - Follow up: Ryan Catherine MD; When: 2 - 3 days; Reason: Recheck today's complaints, Continuance of care, Re-evaluation by your physician. Signatures: Dispatcher [employer] Shavon Culp RN RN aj Therrien, Shelly, DIGITAL MANAGER-C DIGITAL MANAGER-Csnw Darrion Bangura MD MD rn Joaquin, Henry, RN RN Corrections: (The following items were deleted from the chart) 10:59 10:50 11/07/2018 10:50 Discharged to Home. Impression: Bitten by dog; Cellulitis of aj right finger. Condition is Stable. Forms are Medication Reconciliation Form, Thank You Letter, Antibiotic Education, Prescription Opioid Use. Follow up: Ryan Catherine; When: 2 - 3 days; Reason: Recheck today's complaints, Continuance of care, Re-evaluation by your physician. snw
[2018-11-07 11:05] VITALS: TEMP 98.8
[2018-11-07 11:06] VITALS: BP 112/84; O2SAT 99
== END 2018-11-07 10:59 | disposition home or self-care (01) ==
LOC: ER 09:34
DX: L03.011 Cellulitis of right finger (principal); F32.9 Major depressive disorder, single episode, unspecified; Z23 Encounter for immunization
CPT/HCPCS: 87040; 90471; 90714; 96365; 99284; J0295